=== PATIENT | male | born 1975 | race Caucasian/White ===

== ENCOUNTER 2021-09-25 09:57 | Emergency (ER) | payer BC ==
[2021-09-25 10:04] VITALS: BP 155/94; PULSE 86; RESP 20; TEMP 97.6
--- NOTE | 2021-09-25 10:30 | ED ---
General Adult HPI - General Chief complaint: GI Bleed Stated complaint: hemorrhoids Time Seen by Provider: 09/25/21 10:07 Source: patient Mode of arrival: ambulatory Limitations: no limitations - History of Present Illness Initial comments: This 46-year-old male presents to the emergency department with hemorrhoid bleeding that began this morning. Patient states on Friday he noticed he had an external hemorrhoid that was painful. Patient states he has never had any hemorrhoids in his past. Patient states he was sitting in his car today when he felt a pop and pain relief, but then noticed he had bleeding coming from his rectum bleeding through his underwear and pants. Patient states he came in due to bleeding. Patient states he has been using [id number] hemorrhoid cream. Patient denies being on any blood thinners, chest pain, shortness of breath, abdominal pain, diarrhea, black stool, CARL, dizziness, vomiting. - Related Data Home Medications Medication Instructions Recorded Confirmed Levothyroxine Sodium [Synthroid] 137 mcg PO DAILY 06/30/14 08/30/14 Allergies Allergy/AdvReac Type Severity Reaction Status Date / Time No Known Allergies Allergy Verified 09/25/21 10:04 Review of Systems ROS Statement: Those systems with pertinent positive or pertinent negative responses have been documented in the HPI. ROS Other: All systems not noted in ROS Statement are negative. 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 After extensive rehabilitation he regained his voice after about 1-1/2 years and isn't quite well ever since. He has minimal expiratory wheezing at times. Past Anesthesia/Blood Transfusion Reactions: No Reported Reaction Additional Past Anesthesia/Blood Transfusion Reaction / Comment(s): NO PROBLEM WITH ANESTHESIA THAT HE CAN RECALL. Past Psychological History: No Psychological Hx Reported Smoking Status: Never smoker Past Alcohol Use History: None Reported Past Drug Use History: None Reported - Past Family History Father Family Medical History: No Reported History Mother Family Medical History: No Reported History General Exam Limitations: no limitations Respiratory exam: Present: normal lung sounds bilaterally. Absent: respiratory distress, wheezes, rales, rhonchi, stridor Cardiovascular Exam: Present: regular rate, normal rhythm, normal heart sounds. Absent: systolic murmur, diastolic murmur, rubs, gallop, clicks GI/Abdominal exam: Present: soft, normal bowel sounds. Absent: distended, tenderness, guarding, rebound, rigid Rectal exam: Present: hemorrhoids (Hemorrhoid the size of quarter present, slight oozing of blood with small clot coming out of opening the size of a pencil ), tenderness Neurological exam: Present: alert, oriented X3 Psychiatric exam: Present: normal affect, normal mood Course Vital Signs 09/25/21 09:58 Temperature 97.6 F Pulse Rate 86 Respiratory 20 Rate Blood Pressure 155/94 O2 Sat by Pulse 100 Oximetry Medical Decision Making - Medical Decision Making This 46-year-old male presents emergency Department with a hemorrhoid that popped and bled this morning. Hemorrhoid the size of a quarter present, oozing and small clots coming out of the opening size of a pencil. Clot removed with pressure put onto hemorrhoid. Patient inform to use hemorrhoid cream and to buy [id number] lidocaine ointment for pain. Patient states he now has minimal pain after it began bleeding. Advised to take sitz bath and to put pressure onto hemorrhoid. Strict return precautions given to patient. Patient agreeable to plan. Patient sent home in stable condition. Disposition Clinical Impression: External hemorrhoid Disposition: HOME SELF-CARE Condition: Stable Instructions (If sedation given, give patient instructions): Hemorrhoids (ED) Additional Instructions: Return to the emergency department with any new or worsening symptoms. Is patient prescribed a controlled substance at d/c from ED?: No Referrals: Isis Fernandez DO [Primary Care Provider] - 1-2 days Time of Disposition: 10:29
== END 2021-09-25 10:45 | disposition home or self-care (01) ==
LOC: EC 09:57
DX: K64.4 Residual hemorrhoidal skin tags (principal)
CPT/HCPCS: 99284